=== PATIENT | female | born 1980 | race American Indian/Alaskan Native ===

== ENCOUNTER 2016-02-25 07:28 | Day surgery (SDC) | payer MEDICARE ==
--- NOTE | 2016-02-24 22:07 | History and Physical Report ---
History of Present Illness Date of examination: 02/12/16 Chief complaint: Pelvic Pain, Endometriosis History of present illness: Pt is a 35 year old female with a known h/o endometriosis who presents for surgical management of worsening pelvic pain. Past History Past Medical History: seizure Past Surgical History: INTERVENTIONAL TECH/uterine surgery (laparoscopy x 2, laparoscopic tubal ligaton ) INTERVENTIONAL TECH History: other (endometriosis) Family/Genetic History: cancer Social history: no significant social history Medications and Allergies Allergies Allergy/AdvReac Type Severity Reaction Status Date / Time phenytoin sodium Allergy Rash Verified 02/12/16 14:42 [From Dilantin] phenytoin sodium extended Allergy Rash Verified 02/12/16 14:42 [From Dilantin] latex AdvReac skin Verified 02/12/16 14:42 irritation Home Medications Medication Instructions Recorded Confirmed Last Taken Type Unobtainable 02/12/16 02/12/16 Unknown History Review of Systems All systems: negative - Physical Exam Breasts: Positive: deferred Cardiovascular: Regular rate Lungs: Positive: Clear to auscultation Abdomen: Positive: soft Extremities: Positive: normal Results All other labs normal. Assessment and Plan A: Pelvic Pain Endometriosis P: Proceed with laparoscopic fulguration of endometriosis and other indicated procedures.
[~2016-02-25 07:28] MED LIST: ANCEF/STERILE WATER 2 GM/20 ML 20 ML IV NR; LACTATED RINGERS 1,000 ML IV SCH
[2016-02-25] MEDS ORDERED: DILAUDID IV PRN (07:34)
[2016-02-25] MEDS ORDERED: ZOFRAN IV PRN (07:34)
[2016-02-25] MEDS ORDERED: PEPCID PO NR (08:00)
[2016-02-25] MEDS ORDERED: REGLAN PO NR (08:00)
[2016-02-25] MEDS ORDERED: VERSED IV NR (08:00)
--- NOTE | 2016-02-25 08:22 | Anesthesia Day of Surgery ---
Anesthesia Day of Surgery - Day of Surgery Patient Examined: Yes Patient H&P Reviewed: Yes Patient is NPO: Yes
--- NOTE | 2016-02-25 08:25 | Anesthesia Consultation ---
Anesthesia Consult and Med Hx Date of service: 02/25/16 - Airway Anesthetic Teeth Evaluation: Good ROM Head & Neck: Adequate Mental/Hyoid Distance: Adequate Mallampati Class: Class I Intubation Access Assessment: Good - Pulmonary Exam CTA: Yes - Cardiac Exam Cardiac Exam: RRR - Pre-Operative Health Status ASA Pre-Surgery Classification: ASA2 Proposed Anesthetic Plan: General - Pre-Anesthesia Comment Pre-Anesthesia Comments: Pt took antiseizure med this AM - Pulmonary Hx Smoking: No Hx Asthma: No - Cardiovascular System Hx Hypertension: No Hx Heart Attack/AMI: No - Central Nervous System Hx Seizures: Yes (last seizure was 2 weeks ago) CVA: No Hx Back Pain: No Hx Psychiatric Problems: No - Gastrointestinal Hx Gastroesophageal Reflux Disease: No - Endocrine Hx Renal Disease: No Hx Liver Disease: No Hx Non-Insulin Dependent Diabetes: No - Hematic Hx Anemia: Yes Hx Sickle Cell Disease: No - Other Systems Hx Cancer: No - Additional Comments Anesthesia Medical History Comments: NAC
[2016-02-25 08:52] LABS: Hematocrit 35.5 % (30.3-42.9); Hemoglobin 11.1 gm/dl (10.1-14.3); Mean Corpuscular HGB Conc 31 % (30-34); Mean Corpuscular Volume 76 fl (79-97); Platelet Count 194 K/mm3 (140-440); Red Blood Count 4.68 M/mm3 (3.65-5.03); Red Cell Distribution Width 15.3 % (13.2-15.2); White Blood Count 5.4 K/mm3 (4.5-11.0)
[2016-02-25 09:10] LABS: Mean Corpuscular Hemoglobin 24 pg (28-32)
[2016-02-25 09:40] LABS: Anion Gap 14 mmol/L; BUN/Creatinine Ratio 15.71; Blood Urea Nitrogen 11 mg/dL (7-17); Calcium 8.3 mg/dL (8.4-10.2); Carbon Dioxide 26 mmol/L (22-30); Chloride 102.5 mmol/L (98-107); Glucose 98 mg/dL (65-100); Potassium 3.8 mmol/L (3.6-5.0); Sodium 139 mmol/L (137-145)
[2016-02-25] MEDS ORDERED: DIPRIVAN 10 MG/ML IV ONE (11:08)
[2016-02-25] MEDS ORDERED: DILAUDID ONE (11:09)
[2016-02-25] MEDS ORDERED: XYLOCAINE MPF 2% ONE (11:10)
[2016-02-25] MEDS ORDERED: ZEMURON IV ONE (11:10)
[2016-02-25] MEDS ORDERED: ROBINUL ONE (12:04)
[2016-02-25] MEDS ORDERED: ZOFRAN ONE (12:04)
[2016-02-25] MEDS ORDERED: TORADOL ONE (12:04)
[2016-02-25] MEDS ORDERED: BLOXIVERZ ONE (12:04)
[2016-02-25] MEDS ORDERED: LACTATED RINGERS 1,000 ML ONE (12:14)
[2016-02-25] MEDS ORDERED: MARCAINE 0.5% INFILTRATI ONE (12:34)
[2016-02-25] MEDS ORDERED: NACL 0.9% IR ONE (12:35)
--- NOTE | 2016-02-25 12:40 | Operative Report ---
Operative Report Operative Report: Date of procedure: February 25, 2016 Preoperative diagnosis: 1) Pelvic Pain 2) Endometriosis Postoperative diagnosis: same Procedure: Diagnostic laparoscopy Surgeon: Jennifer Ignacio M.D. Work From Home: Keshia Escalante M.D. Anesthesia: Gen. endotracheal anesthesia Findings: 1) Small retroverted uterus sounding to 9 cm 2) No evidence of endometriotic implants on uterus, fallopian tubes, ovaries, or peritoneal surfaces including the cul-de-sac Estimated blood loss: 25 mL IV fluid: 450 mL Urine output: 75 mL Specimens: None Drains: None Complications: Counts correct 2 Disposition: Stable to PACU Indication for procedure: Patient is 35 year-old -[place] female 3 para 0212 who presents for surgical evaluation of pelvic pain with a h /o endometriosis. Operation in detail: After the risks, benefits, alternatives and complications of the procedures went to the patient, she gave informed consent for the procedure. She was taken to the operating room with IV noted to be running well and placed in the dorsal supine position. SCDs were noted to be in place and functioning at this time. Gen. endotracheal anesthesia was then induced without difficulty. The patient was then placed in the dorsal lithotomy position with Salvatore stirrups and prepped and draped in normal sterile fashion. A timeout was performed. An exam undere anesthesia was performed. A novak catheter was placed to drain the bladder. An open-sided bivalve speculum was then placed in the vagina for visualization of the cervix. The anterior lip of the cervix was then grasped with a single-tooth tenaculum. The uterus was then sounded to 9 cm. A Hulka uterine manipulator was then placed without difficulty. The single-tooth tenaculum and the bivalve speculum were then removed from the vagina. The surgeon's gloves were then changed. Attention was then turned to the abdominal portion of the case. A horizontal skin incision was made in the infraumbilical fold. A Veres needle was introduced into the peritoneal cavity without difficulty. Pneumoperitoneum was then established with carbon dioxide to a pressure of 15 mmHg. Abdominal entry was then made with a Visiport 5 mm trocar under direct visualization. Pelvic anatomy was noted as stated above. Trendelenburg position was obtained to facilitate movement of the bowel and omentum out of the pelvis. The uterus was elevated out of the pelvis. The anterior and posterior surfaces of the uterus, the ovaries, vesico-uterine peritoneum, the pelvic sidewall and cul-de-sac all appeared to be free of endometriotic implants. The trocar was then removed. The incision were then infiltrated with a 0.5% Marcaine solution. The subcutaneous tissue was cauterized with the Bovie to obtain hemostasis. The skin was closed with 4-0 Vicryl in a subcuticular fashion. The incision was then covered with Steri-Strips, Telfa and Tegaderm dressings. The [employer] uterine manipulator was then removed. Hemostasis of the cervix was noted. All instruments were then removed from the vagina. The procedure was then ended. The patient was replaced into the dorsal supine position and extubated without difficulty and taken to the PACU in stable condition. All instrument, lap and needle counts were correct 2.
--- NOTE | 2016-02-25 12:51 | Short Stay Summary ---
Short Stay Documentation Date of service: 02/25/16 - History Social history: no significant social history - Allergies and Medications Current Medications: Allergies phenytoin sodium [From Dilantin] Allergy (Verified 02/12/16 14:42) Rash phenytoin sodium extended [From Dilantin] Allergy (Verified 02/12/16 14:42) Rash latex Adverse Reaction (Verified 02/12/16 14:42) skin irritation Home Medications Medication Instructions Recorded Confirmed Last Taken Type Unobtainable 02/12/16 02/12/16 Unknown History Active Medications Famotidine (Pepcid) 20 mg PO PREOP NR Stop: 02/25/16 23:00 Last Admin: 02/25/16 08:52 Dose: 20 mg Hydromorphone HCl (Dilaudid) 0.5 mg IV Q10MIN PRN PRN Reason: Pain , Severe (7-10) Stop: 02/25/16 18:00 Cefazolin Sodium (Ancef/Sterile Water 2 Gm/20 Ml) 20 mls @ 80 mls/hr IV PREOP NR PRN Reason: Protocol Stop: 02/26/16 00:05 Lactated Ringer's (Lactated Ringers) 1,000 mls @ 100 mls/hr IV DIRECT FLOYD Last Admin: 02/25/16 08:52 Dose: 100 mls/hr Metoclopramide HCl (Reglan) 10 mg PO PREOP NR Stop: 02/25/16 23:00 Midazolam HCl (Versed) 2 mg IV PREOP NR Stop: 02/25/16 23:59 Last Admin: 02/25/16 08:57 Dose: 1 mg Ondansetron HCl (Zofran) 4 mg IV ONCE PRN PRN Reason: Nausea And Vomiting Stop: 02/25/16 23:00 - Physical exam Breasts: deferred - Brief post op/procedure progress note Date of procedure: 02/25/16 Pre-op diagnosis: Pelvic Pain, Endometriosis Post-op diagnosis: same Procedure: Diagnostic laparoscopy Anesthesia: GETA Findings: 1) Small retroverted uterus sounding to 9 cm 2) No evidence of endometriotic implants on uterus, fallopian tubes, ovaries, or peritoneal surfaces including the cul-de-sac Surgeon: JAY DEE Estimated blood loss: minimal (25 mL) Pathology: none Condition: stable - Hospital course Hospital course: Pt tolerated diagnostic laparoscopy well. She was observed in the PACU until she met discharge criteria. - Disposition Condition at discharge: Stable Disposition: DISCHARGED TO HOME OR SELFCARE - Discharge Diagnoses (1) Pelvic pain Status: Acute (2) Endometriosis Status: Acute Short Stay Discharge Plan Activity: other (Nothing in vagina x 4 wks ) Weight Bearing Status: Full Weight Bearing Diet: regular Wound: keep clean and dry, remove dressing (on day #2 after surgery ) Follow up with: JAY DEE MD [Staff Physician] - 03/10/16 (incision check ) Prescriptions: Ibuprofen [Motrin] 800 mg PO Q8HR PRN #30 tablet PRN Reason: Pain oxyCODONE /ACETAMINOPHEN [Percocet 5/325] 1 tab PO Q6HR PRN #30 tablet PRN Reason: Pain
--- NOTE | 2016-02-25 12:55 | Post Anesthesia Evaluation ---
- Post Anesthesia Evaluation Patient Participated: Yes Airway Patent: Yes Stable Respiratory Function: Yes Nausea/Vomiting: No Temp > 96.8F: Yes Pain Manageable: Yes Adequeate Hydration: Yes Anesthesia Complications: No Block Receding Appropriately: Not Applicable Patient on Ventilator: No
[2016-02-25 14:09] VITALS: BP 109/66
== END 2016-02-25 07:29 | disposition home or self-care (01) ==
LOC: OR 07:28
PROVIDERS: ATTEND Obstetrics & Gynecology
DX: R10.2 Pelvic and perineal pain (principal); N85.4 Malposition of uterus; Z98.51 Tubal ligation status; Z98.890 Other specified postprocedural states
CPT/HCPCS: 36415; 49320; 80048; 81025; 85027; 86850; 86900; 86901; J0690; J1170; J1885; J2250; J2405; J2704; J2710; J7120